=== PATIENT | female | born 1960 | race Caucasian/White ===

== ENCOUNTER 2019-03-09 11:28 | Inpatient (IN) | payer MEDICAID ==
[2019-03-09] VITALS (31 sets, daily range): BP systolic 64–152; BP diastolic 35–95
[~2019-03-09] VITALS: Ht 195.6 cm; Wt 84.4 kg
--- NOTE | 2019-03-09 11:28 | NUR ---
PT [facility]IRA FROM SNF FOR ALOC/BRADYCARDIC. PT CAME UNRESPONSIVE, PT TO BED 5, PT ON MONITOR, RT AND MD AT BEDSIDE.
--- NOTE | 2019-03-09 11:30 | NUR ---
7.5 ET TUBE PLACED BY MD 23 AT THE LIP, +BILATERAL BREATH SOUNDS, O2 SAT 100%, PT COLOR IS PINK, SKIN IS WARM AND DRY, STAT CXR ORDERED TO CONFIRM PLACEMENT
--- NOTE | 2019-03-09 11:49 | NUR ---
ICU 258
[2019-03-09] MEDS ORDERED: LORAZEPAM INJ 2 MG/ML VIAL ONE (11:51)
--- NOTE | 2019-03-09 11:51 | NUR ---
RT NOTE PT INTUBATED PER MD ORDER. 7.5 ETT 22 CM AT LIP. CUFF INFLATED. ETT SECURE. VENTILATOR SETTINGS FOLLOW AC 16 550 100% +5. ALARMS SET PER PROTOCOL AND AUDIBLE. VENT PLUGGED IN TO RED OUTLET. AMBU BAG AT BED SIDE. LARGE THICK HUBER SECRETIONS FOUND UPON TRACHEAL SUCTIONING. Addendum: 03/09/19 at 1153 by RANDAL COTTER RT Amended: Links added.
[2019-03-09] MEDS ORDERED: PROPOFOL 100 ML ONE (11:57)
[2019-03-09] MEDS ORDERED: PIPERACILLIN /TAZOBACTAM 3.375 G in IV D5W 50 ML IV ONE (12:00)
[2019-03-09] MEDS ORDERED: CALCIUM CHLORIDE 1,000 MG/10 ML DISP.SYRIN IV ONE (12:00)
[2019-03-09] MEDS ORDERED: IV NS 0.9% 1,000 ML BAG IV ONE (12:00)
[2019-03-09] MEDS ORDERED: LEVOFLOXACIN 750 MG /D5W 150ML 150 ML IV ONE (12:00)
[2019-03-09] MEDS ORDERED: DOPamine 400 MG in IV D5W 250 ML IV PRN ×4 (12:00)
[2019-03-09] MEDS ORDERED: ENOX40DI SQ (12:09)
[2019-03-09] MEDS ORDERED: ARGI1POW13 PO (12:09)
[2019-03-09] MEDS ORDERED: INSU100V27 SQ (12:09)
[2019-03-09] MEDS ORDERED: DRON2.5C PO (12:09)
[2019-03-09] MEDS ORDERED: MAGN400O6 PO (12:09)
[2019-03-09] MEDS ORDERED: ACET-868 PO (12:09)
[2019-03-09] MEDS ORDERED: LISI-607 PO (12:09)
[2019-03-09] MEDS ORDERED: ESOM40CA PO (12:09)
[2019-03-09] MEDS ORDERED: MULT-447 PO (12:09)
[2019-03-09] MEDS ORDERED: BISA10SU8 RC (12:09)
[2019-03-09] MEDS ORDERED: FOLI1TAB16 PO (12:09)
[2019-03-09] MEDS ORDERED: NA P133E RC (12:09)
[2019-03-09] MEDS ORDERED: HYDR-4384 PO (12:09)
[2019-03-09] MEDS ORDERED: ATOR40TA PO (12:09)
[2019-03-09] MEDS ORDERED: CARV3.12 PO (12:09)
[2019-03-09] MEDS ORDERED: ASPI-1169 PO (12:09)
--- NOTE | 2019-03-09 12:27 | NUR ---
EPIC PAGED ALIDA DNP
[2019-03-09] MEDS ORDERED: LORAZEPAM INJ 2 MG/ML VIAL IV ONE (12:30)
[2019-03-09] MEDS ORDERED: PROPOFOL 1,000 MG/100 ML BOTTLE IV ONE (12:30)
[2019-03-09 12:40] LABS: APPEARANCE,URINE TURBID (CLEAR); BILIRUBIN,URINE NEGATIVE (NEGATIVE); BLOOD, URINE 2+ Ery/uL (NEGATIVE); COLOR,URINE DARK YELLO (YELLOW); KETONES,URINE NEGATIVE (NEGATIVE); LEUKOCYTE ESTERASE ,URINE 3+ (NEGATIVE); NITRITE, URINE NEGATIVE (NEGATIVE); PH,URINE 8.5 (5.0-8.0); PROTEIN,URINE 2+ mg/dl (NEGATIVE); UGLUCOSE NEGATIVE (NEGATIVE); UROBILINOGEN,URINE 0.2 EU/dL (0.2)
[2019-03-09 12:43] LABS: CALCIUM, SERUM 7.8 mg/dL (8.5-10.1); CARBON DIOXIDE 25 mmol/L (21-32); CREATININE 0.8 mg/dL (0.6-1.3); GLUCOSE 143 mg/dL (74-106); POTASSIUM 3.1 mmol/L (3.5-5.1); UREA NITROGEN, BLOOD 15 mg/dL (7-18)
[2019-03-09 12:56] LABS: ALANINE AMINOTRANSFERASE 44 U/L (12-78); ALKALINE PHOSPHATASE 535 U/L (46-116); ASPARTATE AMINOTRANSFERASE 110 U/L (15-37); B-TYPE NATRIURETIC PEPTIDE 437 PG/ML (0-125); BILIRUBIN,DIRECT 0.2 mg/dL (0.0-0.2); BILIRUBIN,TOTAL 0.3 mg/dL (0.2-1.0); TOTAL PROTEIN, SERUM 4.4 g/dL (6.4-8.2)
[2019-03-09 12:58] LABS: SODIUM SERUM 167 mmol/L (136-145)
[2019-03-09 12:59] LABS: CHLORIDE 130 mmol/L (98-107)
[2019-03-09] MEDS ORDERED: NOREPINEPHRINE 8 MG in IV D5W 500 ML IV PRN (13:00)
[2019-03-09 13:04] LABS: ALBUMIN 0.7 g/dL (3.4-5.0); BASOPHILS % (AUTO) 0.2 % (0.0-2.0); HEMATOCRIT 24 % (33-45); LYMPHOCYTES # (AUTO) 3.2 /CMM (0.8-4.8); LYMPHOCYTES % (AUTO) 35.2 % (20.0-44.0); MEAN CORPUSCULAR HGB CONC 29 g/dl (31.0-36.0); MEAN CORPUSCULAR VOLUME 112 fL (82-100); MONOCYTES # (AUTO) 0.3 /CMM (0.1-1.30); MONOCYTES % (AUTO) 3.7 % (2.0-12.0); NEUTROPHILS # (AUTO) 5.5 /CMM (1.8-8.9); NEUTROPHILS % (AUTO) 60.9 % (43.0-81.0); PLATELET COUNT (AUTO) 157 /CMM (150-450); RED BLOOD CELL COUNT(AUTO) 2.17 MIL/uL (4.0-5.2); WHITE BLOOD COUNT (AUTO) 9.1 K/uL (4.3-11.0)
[2019-03-09 13:11] LABS: BACTERIA,URINE Many /HPF (None Seen); SQUAMOUS EPITHELIAL CELL,UR Few /HPF (None Seen); WBC,URINE 81-100 /HPF (0-3)
[2019-03-09 13:16] LABS: HEMOGLOBIN 6.9 g/dL (11.5-14.8)
[2019-03-09 13:49] LABS: BAND % (MANUAL) 9 % (0.0-5.0); LYMPHOCYTES % (MANUAL) 30 % (16-48); MONOCYTES % (MANUAL) 5 % (0-11.0); NEUTROPHILS % (MANUAL) 56 (42-76)
--- NOTE | 2019-03-09 13:57 | NUR ---
PT WAS TRANSPORTED TO ICU VIA ACLS PROTOCOL
--- NOTE | 2019-03-09 13:59 | NUR ---
ART EDUCATOR NOTE RCVD PT LETHARGIC, INTUBATED 7.03/07 AT LIP, AFIB ON MONITOR, CYR TO GRAVITY WITH CLOUDY, YELLOW URINE. RIGHT SUBCLAVIAN LINE IN PLACE, PT ON DOPAMINE AND LEVOPHED DRIPS. RESTRAINTS STARTED IN ER AND IN PLACE ON TRANSPORT. REPORT GIVEN AT BEDSIDE BY HOWARD BROWNING. NO ADMISSION ORDERS. CHELSY, PSYCHOLOGICAL TESTS SALES AGENT INFORMED THAT PT WAS TRANSPORTED BY ER TO ICU WITHOUT ANY ADMISSION ORDERS AND WITHOUT GIVEN PRIOR REPORT.
[2019-03-09] MEDS ORDERED: IV D5/0.45 NACL 1,000 ML IV PRN (15:06)
[2019-03-09 15:16] LABS: ABG BASE EXCESS -1.4 mmol/L; ABG PCO2 32.9 mmHg (35.0-45.0); ABG PH 7.448 (7.350-7.450); ABG PO2 531.5 mmHg (75.0-100.0); AaDO2 148.6 mmHg; COHb 0.7 % (0.5-1.5); MetHb 0.5 % (0.0-1.5); O2Hb 97.8 % (94.0-97.0); PEEP,BG 5 cm H2O; SITE, ABG Right Brachial; VT, ABG 550 mL
--- NOTE | 2019-03-09 15:24 | NUR ---
VENT CHANGES BELOW PER DR. WARREN: VT 500ML FO2 40% Addendum: 03/09/19 at 1525 by SONNY BRADLEY RT Amended: Links added.
[2019-03-09] MEDS ORDERED: PROPOFOL 10MG/ML 50ML 50 ML IV PRN (15:30)
[2019-03-09] MEDS ORDERED: ONDANSETRON HCL/PF 4 MG/2 ML VIAL IVP PRN (15:30)
[2019-03-09] MEDS ORDERED: DEXTROSE 50%-WATER 50 ML DISP.SYRIN IV PRN (15:30)
[2019-03-09] MEDS ORDERED: ACETAMINOPHEN 650 MG/SUPP.RECT RC PRN (15:30)
[2019-03-09] MEDS ORDERED: ALBUMIN 5% 12.5 GM in PREMIX 1 EA IV ONE (16:00)
[2019-03-09] MEDS ORDERED: FEE PK DOSING 1 MIN EA MC ONE (16:20)
[2019-03-09] MEDS ORDERED: PHENYLEPHRINE 80 MG in IV D5W 250 ML IV PRN (16:30)
[2019-03-09 16:33] LABS: MAGNESIUM 1.9 mg/dL (1.8-2.4); PHOSPHORUS 4.8 mg/dL (2.5-4.9)
[2019-03-09] MEDS: NOREPINEPHRINE 16 MG in IV D5W 500 ML IV PRN (16:34)
[2019-03-09] MEDS: IV NS 0.9% 1,000 ML IV PRN (16:48)
[2019-03-09] MEDS: POTASSIUM CL. PREMIX PERIPHER. 50 ML IV SCH ×5 (16:50→23:44)
--- NOTE | 2019-03-09 16:56 | NUR ---
INCOME TAX MANAGER NOTE PT'S CARE ENDORSED TO HOWARD CHRISTIANSON FOR CONTINUITY OF CARE. BILATERAL PEDAL PULSES NOT PRESENT ON ASSESSMENT WITH DOPPLER, KELVIN IRWIN NP AWARE, WEAK POSTERIOR TIBIALIS PULSES PRESENT, PT'S DAUGHTER AT BEDSIDE UPDATED ON PT'S CONDITION BY DR. ALEX. CONSENT FOR BLOOD PRODUCTS SIGNED AND PLACED IN CHART. PT'S VITAL SIGNS ARE MORE STABLE, A -LINE PLACEMENT DONE FOR ACCURATE BLOOD PRESSURE MANAGEMENT.
[2019-03-09 17:17] LABS: CALCIUM, SERUM 7.5 mg/dL (8.5-10.1); CREATININE 0.8 mg/dL (0.6-1.3); POTASSIUM 2.9 mmol/L (3.5-5.1)
[2019-03-09 17:29] LABS: BASOPHILS % (AUTO) 0.2 % (0.0-2.0); EOSINOPHILS % (AUTO) 0.1 % (0.0-6.0); HEMATOCRIT 30 % (33-45); HEMOGLOBIN 8.3 g/dL (11.5-14.8); LYMPHOCYTES # (AUTO) 1.6 /CMM (0.8-4.8); LYMPHOCYTES % (AUTO) 13.2 % (20.0-44.0); MEAN CORPUSCULAR HGB CONC 28 g/dl (31.0-36.0); MEAN CORPUSCULAR VOLUME 110 fL (82-100); MONOCYTES # (AUTO) 0.6 /CMM (0.1-1.30); MONOCYTES % (AUTO) 5.3 % (2.0-12.0); NEUTROPHILS % (AUTO) 81.2 % (43.0-81.0); PLATELET COUNT (AUTO) 177 /CMM (150-450); RED BLOOD CELL COUNT(AUTO) 2.71 MIL/uL (4.0-5.2); WHITE BLOOD COUNT (AUTO) 12.3 K/uL (4.3-11.0)
[2019-03-09] MEDS: HYDROCORTISONE SOD SUCCINATE 100 MG/2 ML VIAL IV SCH (17:44)
[2019-03-09] MEDS: FLUDROCORTISONE 0.1 MG TABLET NG SCH (17:45)
[2019-03-09] MEDS: VANCOMYCIN 1.25 GM in IV D5W 500 ML IV SCH (17:45)
[2019-03-09 17:51] LABS: THYROID STIMULATING HORMONE 3.932 uIU/mL (0.358-3.74)
[2019-03-09 18:07] LABS: BAND % (MANUAL) 5 % (0.0-5.0); LYMPHOCYTES % (MANUAL) 13 % (16-48); MONOCYTES % (MANUAL) 5 % (0-11.0); NEUTROPHILS % (MANUAL) 77 (42-76)
[2019-03-09] MEDS: BLOOD SUGAR DIAGNOSTIC 1 EACH STRIP IN SCH (18:29)
--- NOTE | 2019-03-09 19:26 | NUR ---
LOAN DOCUMENTATION SPECIALIST CLOSING NOTE PATIENT SEDATED ,TOLERATING VENT SETTINGS WELL.ON LEVO 14MCG/MIN.AND PROPOFOL 10MCG/KG/MIN.BP STABLE.ON GOING IVF AND ATB.OG TUBE INSERTED PER ORDER.NO BLEEDING NOTED.SAFETY AND ASPIRATION PRECAUTIONS IN PLACE.ENDORSED TO PM NURSE FOR YOSSI.
--- NOTE | 2019-03-09 20:05 | NUR ---
QUALITY MEASUREMENT SPECIALIST. INITIAL ASSESSMENT. RECEIVED THE PT REST ON THE BED, ORALLY INTUBATED, SEDATED WITH DIPRIVAN. ETT 7.5CM,AC 16,LIP 23,TV 550, PEEP 5, SAT 98%. NO ACUTE DISTRESS NOTED. SENIOR RADIATION THERAPIST SHOWING AFIB. OGT CLAMPED. FC PATENT. JOSE LUIS SOFT WRIST RESTRAINT RESTRAINT CHECKED AND RELEASED. NO INJURY OR REDNESS NOTED, A LINE INTACT. JOSE LUIS SOFT WRIST RESTRAINT CHECKED AND RELEASED. NO INJURY OR REDNESS NOTED. HOB ELEAVTED. LEILA HUGGER ON. IV RT SUCLAVIAN INTACT, LT WRIST 22G, DIPRIVAN 10MCG/KG/MIN,LEVOPHED 14MCG/K MIN. NS 200ML/H, POTASSIUM RUNNING. WILL CONTINUE TO MONITOR VITALS.
[2019-03-09] MEDS: ZOSYN IVPB 3.375 G in IV D5W 50ml IV SCH (20:34)
[2019-03-09] MEDS ORDERED: POTASSIUM CL. PREMIX PERIPHER. 100 ML ONE (23:44)
[2019-03-10] VITALS (79 sets, daily range): BP systolic 10–137; BP diastolic 36–83
[2019-03-10] MEDS: FLUDROCORTISONE 0.1 MG TABLET NG SCH ×5 (00:31→23:21)
[2019-03-10] MEDS: BLOOD SUGAR DIAGNOSTIC 1 EACH STRIP IN SCH ×5 (00:32→23:28)
[2019-03-10] MEDS: INSULIN REGULAR, HUMAN 100 UNIT/ML 3 ML VIAL SQ PRN ×5 (00:34→23:30)
[2019-03-10] MEDS: IV NS 0.9% 1,000 ML IV PRN (00:37)
[2019-03-10] MEDS: POTASSIUM CL. PREMIX PERIPHER. 50 ML IV SCH (00:37)
[2019-03-10] MEDS ORDERED: NOREPINEPHRINE 4 MG/4 ML AMPUL IV ONE (00:46)
[2019-03-10] MEDS: NOREPINEPHRINE 16 MG in IV D5W 500 ML IV PRN ×2 (01:32→11:41)
[2019-03-10] MEDS: ZOSYN IVPB 3.375 G in IV D5W 50ml IV SCH ×4 (02:52→20:31)
--- NOTE | 2019-03-10 03:05 | NUR ---
ASSESSMENT ANALYST. PT CONVERTED TO SINUS RHYTHM AT 0100
[2019-03-10 04:36] LABS: BASOPHILS # (AUTO) 0.1 /CMM (0.0-0.2); BASOPHILS % (AUTO) 0.5 % (0.0-2.0); EOSINOPHILS % (AUTO) 0.5 % (0.0-6.0); HEMATOCRIT 26 % (33-45); HEMOGLOBIN 7.2 g/dL (11.5-14.8); LYMPHOCYTES # (AUTO) 2.3 /CMM (0.8-4.8); LYMPHOCYTES % (AUTO) 14.6 % (20.0-44.0); MEAN CORPUSCULAR HGB CONC 28 g/dl (31.0-36.0); MEAN CORPUSCULAR VOLUME 108 fL (82-100); MONOCYTES # (AUTO) 0.5 /CMM (0.1-1.30); MONOCYTES % (AUTO) 3.1 % (2.0-12.0); NEUTROPHILS % (AUTO) 81.3 % (43.0-81.0); PLATELET COUNT (AUTO) 170 /CMM (150-450); RED BLOOD CELL COUNT(AUTO) 2.39 MIL/uL (4.0-5.2)
[2019-03-10 04:51] LABS: CREATININE 0.9 mg/dL (0.6-1.3); MAGNESIUM 1.6 mg/dL (1.8-2.4); PHOSPHORUS 3.7 mg/dL (2.5-4.9); POTASSIUM 3.1 mmol/L (3.5-5.1)
[2019-03-10 04:55] LABS: THYROID STIMULATING HORMONE 1.153 uIU/mL (0.358-3.74)
[2019-03-10] MEDS ORDERED: ALBUMIN 25% 12.5 GM in PREMIX 1 EA IV ONE (05:00)
[2019-03-10] MEDS ORDERED: ALBUMIN 25% 12.5 GM/50 ML BOTTLE IV ONE (05:00)
[2019-03-10] MEDS: VANCOMYCIN 1.25 GM in IV D5W 500 ML IV SCH (05:26)
--- NOTE | 2019-03-10 05:51 | NUR ---
INSURANCE CUSTOMER SERVICE SPECIALIST. CRITICAL LAB CALLED FOR SODIUM 163, CL 129. MD SYED MADE AWARE, CHANGE NS TO D5W @75ML/H
[2019-03-10] MEDS ORDERED: IV D5W 1,000 ML IV SCH (06:00)
--- NOTE | 2019-03-10 07:35 | NUR ---
RT PATIENT REC'D ORALLY INTUBATED ON MECH VENT WITH ORDERED SETTINGS ELIZABETH. VENTS ALARMS CHECKED ELIZABETH WELL. PATIENT NON RESPONSIVE, NO DISTRESS ON MECH VENT. SUCTIONED WITH SMALL AMT OF HUBER SEMITHICK SECRETIONS. AMBU BAG AT [facility]. Addendum: 03/10/19 at 1830 by ASHELY ZARAGOZA RT Amended: Links added.
[2019-03-10 08:07] LABS: BAND % (MANUAL) 24 % (0.0-5.0); LYMPHOCYTES % (MANUAL) 14 % (16-48); MONOCYTES % (MANUAL) 1 % (0-11.0); NEUTROPHILS % (MANUAL) 61 (42-76)
--- NOTE | 2019-03-10 08:50 | NUR ---
PER DR PAN PLEASE GIVE PATIENT 200ML FREE WATER FLUSHES EVERY 6 HOURS
[2019-03-10] MEDS: Magnesium 1GM/D5W 100ML PREMIX 100 ML IV SCH ×2 (09:10→10:12)
[2019-03-10] MEDS: HYDROCORTISONE SOD SUCCINATE 100 MG/2 ML VIAL IV SCH ×3 (09:10→17:07)
[2019-03-10] MEDS: Z GUARD REMEDY 2 OZ OINT TP PRN (09:11)
[2019-03-10] MEDS: Potassium Chloride 40 MEQ in IV D5W 1,000 ML IV PRN ×2 (09:49→23:22)
[2019-03-10 10:02] LABS: ABG BASE EXCESS -1.1 mmol/L; ABG OXYGEN SATURATION 97.9 % (92.0-98.5); ABG PCO2 35.8 mmHg (35.0-45.0); ABG PH 7.428 (7.350-7.450); COHb 1.2 % (0.5-1.5); MetHb 0.6 % (0.0-1.5); O2Hb 96.1 % (94.0-97.0); SITE, ABG A-Line
--- NOTE | 2019-03-10 11:14 | NUR ---
Positive DVT on L Popliteal - Called Dr. Vu w/ orders to start Lovenox (pharmacy to dose) & check H/H tonight at 8pm.
[2019-03-10] MEDS: PROPOFOL 100 ML IV PRN (11:41)
[2019-03-10] MEDS: ENOXAPARIN SODIUM 80 MG/0.8 ML DISP.SYRIN SQ SCH ×2 (11:42→20:32)
--- NOTE | 2019-03-10 12:00 | NUR ---
Pt seen & examined by Dr. Alonzo, updated about pt condition w/ NNO.
[2019-03-10] MEDS: LEVOFLOXACIN 750 MG /D5W 150ML 750 MG in PREMIX 1 EA IV SCH (13:02)
--- NOTE | 2019-03-10 13:25 | NUR ---
Pt seen & examined by Dr. Wynn w/ orders to do ABG & CXR zechariah CHO
[2019-03-10 15:27] LABS: OCCULT BLOOD STOOL NEGATIVE (NEGATIVE)
[2019-03-10] MEDS: VANCOMYCIN 1 GM in IV D5W 250 ML IV SCH (17:33)
--- NOTE | 2019-03-10 18:22 | NUR ---
TIN FLIPPER CLOSING NOTES: Pt not in any distress. On MV via ETT, sating at 100%. SR/SB on telemonitor. IV line access kept patent & intact w/ D5W+40meqsKCL x 120 cc/hr, Diprivan Drip x 10 mcg, & Levophed Drip x 10 mcg infusing well at R Subclavian TLC. Has R wrist A-line in place, no bleeding. Has L wrist SL, C/D/I. Has OGT clamped at this time (per DR. Vu will reassess zechariah re: starting TF). B soft wrist restraints kept on for pt's safety. Has FC draining to BSB, yellowish UOP. Safety measures observed at all times w/ bed in lowest & locked pos. Call light placed w/in reach. Will endorse to PM RN for YOSSI.
--- NOTE | 2019-03-10 19:11 | NUR ---
PT RCVD ORALLY INTUBATED WITH 7.5 ETT SECURED @ 22 CM [facility] WITH NOTED SETTINGS. PT IS NON RESPONSIVE . RADIOLOGIC TECHNICIAN CUFF PRESSURE NOTED. NO RESP DISTRESS OR SOB NOTED AT THIS TIME . SX'D MODERATE AMOUNT OF HUBER THICK SECRETIONS. ALARMS ARE SET AND AUDIBLE. VENT PLUGGED INTO RED OUTLET. AMBU BAG AT BEDSIDE. WILL CONTINUE TO MONITOR.
[2019-03-10] MEDS: IV NS 0.9% 250 ML IV PRN (20:51)
[2019-03-10 21:19] LABS: HEMOGLOBIN 6.4 g/dL (11.5-14.8)
--- NOTE | 2019-03-10 22:45 | NUR ---
RANGER AIDE NOTES LATEST H/H = 6.02/04. RESULT RELAYED TO DR SYED. NEW ORDER: TRANSFUSE 1 UNIT OF [facility]
[2019-03-11] VITALS (95 sets, daily range): BP systolic 82–152; BP diastolic 34–99
[2019-03-11] MEDS: ZOSYN IVPB 3.375 G in IV D5W 50ml IV SCH ×4 (01:10→20:20)
[2019-03-11] MEDS: PROPOFOL 100 ML IV PRN (01:15)
--- NOTE | 2019-03-11 02:00 | NUR ---
STAFF GENETIC COUNSELOR NOTES CALLED BLOOD BANK, SPOKE TO MARILYN. PER MARILYN, [facility] X1 UNIT IS NOW READY.
--- NOTE | 2019-03-11 02:47 | NUR ---
CRAB MEAT PROCESSOR NOTES BLOOD TRANSFUSION STARTED. WILL MONITOR CLOSELY
[2019-03-11] MEDS: BLOOD SUGAR DIAGNOSTIC 1 EACH STRIP IN SCH ×3 (06:06→17:29)
[2019-03-11] MEDS: INSULIN REGULAR, HUMAN 100 UNIT/ML 3 ML VIAL SQ PRN ×3 (06:07→17:40)
[2019-03-11] MEDS: VANCOMYCIN 1 GM in IV D5W 250 ML IV SCH (06:09)
[2019-03-11] MEDS: FLUDROCORTISONE 0.1 MG TABLET NG SCH ×3 (06:09→17:14)
[2019-03-11 07:17] LABS: BASOPHILS % (AUTO) 0.2 % (0.0-2.0); HEMATOCRIT 25 % (33-45); HEMOGLOBIN 7.4 g/dL (11.5-14.8); LYMPHOCYTES # (AUTO) 1.8 /CMM (0.8-4.8); LYMPHOCYTES % (AUTO) 21.2 % (20.0-44.0); MEAN CORPUSCULAR HGB CONC 30 g/dl (31.0-36.0); MEAN CORPUSCULAR VOLUME 104 fL (82-100); MONOCYTES # (AUTO) 0.3 /CMM (0.1-1.30); MONOCYTES % (AUTO) 3.4 % (2.0-12.0); NEUTROPHILS # (AUTO) 6.3 /CMM (1.8-8.9); NEUTROPHILS % (AUTO) 75.2 % (43.0-81.0); PLATELET COUNT (AUTO) 105 /CMM (150-450); RED BLOOD CELL COUNT(AUTO) 2.35 MIL/uL (4.0-5.2); WHITE BLOOD COUNT (AUTO) 8.4 K/uL (4.3-11.0)
[2019-03-11 07:46] LABS: CALCIUM, SERUM 6.6 mg/dL (8.5-10.1); CREATININE 0.8 mg/dL (0.6-1.3); POTASSIUM 3.6 mmol/L (3.5-5.1)
[2019-03-11] MEDS: Z GUARD REMEDY 2 OZ OINT TP PRN ×2 (08:03→12:18)
[2019-03-11] MEDS: Potassium Chloride 40 MEQ in IV D5W 1,000 ML IV PRN ×2 (08:03→17:14)
[2019-03-11] MEDS: HYDROCORTISONE SOD SUCCINATE 100 MG/2 ML VIAL IV SCH ×3 (08:03→16:44)
[2019-03-11 09:12] LABS: BAND % (MANUAL) 15 % (0.0-5.0); LYMPHOCYTES % (MANUAL) 21 % (16-48); MONOCYTES % (MANUAL) 4 % (0-11.0); MYELOCYTES % 4 % (0-0); NEUTROPHILS % (MANUAL) 56 (42-76)
--- NOTE | 2019-03-11 09:30 | NUR ---
DR DOBBS AT BEDSIDE. PATIENT OFF SEDATION AT THIS TIME ALERT AND AWAKE. NOT FOLLOWING COMMANDS. AWARE PATIENT CONTINUES TO BE BRADYCARDIC 39 UNSUSTAINED HOWEVER CONTINUES IN THE 40'S PRIMARILY. NO NEW ORDERS AT THIS TIME MESSAGE LEFT FOR RETORT SETTER STOCK MOVER TO NOTIFY. OTHERWISE BP STABLE. RR STABLE. WILL MONITOR Addendum: 03/11/19 at 1047 by JAMIN PEREZ RN PER MD PIZARRO TO CONTINUE WITH LOVENOX.
--- NOTE | 2019-03-11 09:54 | NUR ---
DR BROOKS CERTIFIED ADDICTION COUNSELOR LABOR OPERATOR AWARE OF PATIENT HR IN THE 40'S AND AT TIMES HIGH 30'S. NO NEW ORDERS.
[2019-03-11] MEDS: ENOXAPARIN SODIUM 80 MG/0.8 ML DISP.SYRIN SQ SCH ×2 (09:59→21:38)
--- NOTE | 2019-03-11 10:02 | NUR ---
DR BROOKS AT BEDSIDE. PER MD ORDER EKG.
--- NOTE | 2019-03-11 10:30 | NUR ---
PATIENT MORE ALERT AND AWAKE. STARTING TO FOLLOW COMMANDS. MOVING ALL EXTREMITIES. DENIES PAIN. CALM AND COOPERATIVE.
--- NOTE | 2019-03-11 11:30 | NUR ---
DR DUMONT AT BEDSIDE. PER MD PATIENT STABLE FOR CT TESTS. AND AFTER CT TESTING OK TO TRY C PAP TRIAL ON PATIENT.
[2019-03-11] MEDS: NOREPINEPHRINE 16 MG in IV D5W 500 ML IV PRN (12:42)
[2019-03-11] MEDS ORDERED: CT SWABBABLE VALVE TRANS SET 1 EA INFUS.SET MC ONE (12:56)
[2019-03-11] MEDS ORDERED: IV NS 0.9% 250 ML IV ONE (12:56)
[2019-03-11] MEDS ORDERED: IOHEXOL-300 100 ML VIAL IV ONE (12:56)
--- NOTE | 2019-03-11 15:00 | NUR ---
NOTIFIED DR DUMONT PATIENT AWAKE AND ALERT. PER MD PLEASE INITIATE CPAP TRIAL WITH PRESSURE SUPPORT OF 10.
[2019-03-11] MEDS: LEVOFLOXACIN 750 MG /D5W 150ML 750 MG in PREMIX 1 EA IV SCH (15:14)
--- NOTE | 2019-03-11 15:57 | NUR ---
NOTIFIED DR DUMONT PATIENT STABLE ON CPAP. OK FOR ABG PER . SUZIE HERMOSILLO NOTIFIED
[2019-03-11 16:25] LABS: ABG BASE EXCESS -4.1 mmol/L; ABG OXYGEN SATURATION 97.6 % (92.0-98.5); ABG PCO2 41.8 mmHg (35.0-45.0); ABG PO2 137.3 mmHg (75.0-100.0); AaDO2 99.8 mmHg; MetHb 0.3 % (0.0-1.5); O2Hb 96.3 % (94.0-97.0); PEEP,BG 5 cm H2O; SITE, ABG A-Line
--- NOTE | 2019-03-11 16:40 | NUR ---
NOTIFIED DR DUMONT OF PATIENT ABG. PER MD CONTINUE WITH EXTUBATION. RT SUZIE AT BEDSIDE.
--- NOTE | 2019-03-11 16:45 | NUR ---
PATIENT SUCCESSFULLY EXTUBATED. TOLERATING NASAL CANNULA 4L. COUGH AND GAG REFLEXES PRESENT. AWAKE AND ALERT NODDING YES AND NO TO QUESTIONS ASKED OF HER. FOLLOWING COMMANDS
--- NOTE | 2019-03-11 18:52 | NUR ---
ALL DUE MEDS GIVEN AND ALL NEEDS MET. PATIENT AWAKE AND ALERT. FOLLOWING COMMANDS. SPEAKING. IV SITES C/D/I/P. BREATHING UNLABORED, NO SOB, AND TOLERATING LOW FLOW 02. PATIENT NSR. BP STABLE OFF LEVO. CYR 900ML OUTPUT. NO S/S BLEEDING. SKIN, SAFETY, ASPIRATION PRECAUTIONS IN PLACE AND MONITORED THROUGHOUT DAY.
--- NOTE | 2019-03-11 18:52 | NUR ---
ID ASSISTANT BRANCH MANAGER AWARE PATIENT LOOSE STOOL. OK FOR C DIFF SAMPLE.
--- NOTE | 2019-03-11 19:00 | NUR ---
STILL OPERATOR GIN NOTES RECEIVED PATIENT (EXTUBATED TODAY),AWAKE,ALERT,NOT IN ANY DISTRESS WITH O2 VIA NASAL CANNULA 3L/MIN.FOLLOWS COMMANDS,SEEMS TO UNDERSTAND ,TRIES TO TALK BUT UNABLE TO MAKE SOME WORDS/MUMBLES WITH SOFT LOW VOICE. NOTED BOTH ARMS + EDEMA L> R HARDLY ABLE TO LIFT AND HAVE A GOOD RETAIL MERCHANDISER ON LEFT HAND,RIGHT ARMS A LITTLE STRONGER AND ABLE TO LIFT BETTER. BOTH LOWER EXTREMITIES WEAK, ABLE TO SLIGHTLY MOVE AND LIFT BUT NOT OFF GRAVITY. TRIPLE LUMEN CATHETER NOTE ON LEFT SUBCLAVIAN AREA, DISTAL PORT TO CVP MONITOR,WITH GOOD WAVEFORM AND GOOD BLOOD RETURN. ARTERIAL LINE VIA LEFT RADIAL ARTERY GOOD WAVEFORM,GOOD BLOOD RETURN.COMFORT CARE DONE,NEEDS ATTENDED.PATIENT HYPOTHERMIC TEMP=94 F, WARMER TURNED ON TO MEDIUM TEMP.( LEILA WEINSTEIN).
[2019-03-12] VITALS (76 sets, daily range): BP systolic 81–140; BP diastolic 40–79
--- NOTE | 2019-03-12 | NUR ---
CELL LEAD NOTES STATUS UNCHANGED,REMAINS AWAKE,ALERT,NOT IN NAY DISTRESS ,TOLERATING NASAL CANNULA 02, SATURATING 99-100%. DENIES ANY PAIN.
[2019-03-12] MEDS: INSULIN REGULAR, HUMAN 100 UNIT/ML 3 ML VIAL SQ PRN ×5 (00:10→22:17)
[2019-03-12] MEDS: BLOOD SUGAR DIAGNOSTIC 1 EACH STRIP IN SCH ×5 (00:14→22:13)
[2019-03-12] MEDS: ZOSYN IVPB 3.375 G in IV D5W 50ml IV SCH ×2 (02:00→08:02)
[2019-03-12] MEDS: Potassium Chloride 40 MEQ in IV D5W 1,000 ML IV PRN ×2 (02:32→12:20)
[2019-03-12 04:31] LABS: BASOPHILS % (AUTO) 0.2 % (0.0-2.0); EOSINOPHILS % (AUTO) 0.1 % (0.0-6.0); HEMATOCRIT 25 % (33-45); HEMOGLOBIN 7.4 g/dL (11.5-14.8); LYMPHOCYTES # (AUTO) 1.6 /CMM (0.8-4.8); LYMPHOCYTES % (AUTO) 12.5 % (20.0-44.0); MEAN CORPUSCULAR HGB CONC 30 g/dl (31.0-36.0); MEAN CORPUSCULAR VOLUME 103 fL (82-100); MONOCYTES # (AUTO) 0.3 /CMM (0.1-1.30); MONOCYTES % (AUTO) 2.6 % (2.0-12.0); NEUTROPHILS % (AUTO) 84.6 % (43.0-81.0); PLATELET COUNT (AUTO) 90 /CMM (150-450); RED BLOOD CELL COUNT(AUTO) 2.38 MIL/uL (4.0-5.2)
[2019-03-12 04:37] LABS: CALCIUM, SERUM 6.7 mg/dL (8.5-10.1); CREATININE 0.7 mg/dL (0.6-1.3); POTASSIUM 4.4 mmol/L (3.5-5.1)
[2019-03-12 05:00] LABS: BAND % (MANUAL) 9 % (0.0-5.0); LYMPHOCYTES % (MANUAL) 13 % (16-48); MONOCYTES % (MANUAL) 4 % (0-11.0); NEUTROPHILS % (MANUAL) 74 (42-76)
[2019-03-12] MEDS: FLUDROCORTISONE 0.1 MG TABLET NG SCH ×4 (06:00→17:15)
[2019-03-12] MEDS: IV NS 0.9% 250 ML IV PRN (06:40)
--- NOTE | 2019-03-12 07:00 | NUR ---
REMAINS STABLE, WITH O2 VIA NASAL CANNULA 3L/MIN. NOT IN ANY DISTRESS, BP STABLE, STILL OF PRESSORS. REPORT GIVEN TO AVLARO LAWRENCE.
--- NOTE | 2019-03-12 07:30 | NUR ---
RN NOTE: RECEIVED PATIENT IN BED, AWAKE, ALERT AND NONVERBAL. ON O2 3L/MIN VIA NC SATURATING 100%. DENIED ANY PAIN. ON SHUTDOWN COORDINATOR SR HR= 83. HOB ELEVATED. ON CONTACT ISOLATION FOR POSSIBLE C. DIFF. C. DIFF TOXIN TEST STILL PENDING AT THIS TIME. (R) RADIAL ARTERY A-LINE NOTED INTACT. (R) SUBCLAVIAN TRIPLE LUMEN IN PLACED WITH BIOPATCH NOTED INTACT AND CLEAN. BED ALARMED AND LOCKED AT ALL TIMES. CALL LIGHT WITHIN REACH. LEILA HUGGER STILL IN PLACED WITH THE PATIENT. NEEDS ANTICIPATED. PENDING SWALLOW EVALUATION.
--- NOTE | 2019-03-12 08:33 | NUR ---
RN NOTE: CALLED AND SPOKE WITH LOURDES FROM THE REHAB DEPARTMENT AND HE WAS INFORMED OF THE PENDING SWALLOW EVALUATION FOR THE PATIENT. PER LOURDES, PATIENT WAS ON THE SCHEDULE FOR SWALLOW EVAL TODAY. AWAITING FOR THE SPEECH THERAPIST.
--- NOTE | 2019-03-12 09:15 | NUR ---
RN NOTE: INFORMED DR. FUNG REGARDING THE PATIENT'S ORDER FOR LOVENOX 80 MG SQ AND THE CURRENT HGB 7.4/HCT 25 AND PLATELET 90. MD WAS INFORMED THAT THERE IS NO S/S OF ACTIVE BLEEDING NOTED. AWAITING FOR MD'S RESPONSE.
[2019-03-12] MEDS: HYDROCORTISONE SOD SUCCINATE 100 MG/2 ML VIAL IV SCH ×3 (09:17→17:15)
[2019-03-12] MEDS: NOREPINEPHRINE 16 MG in IV D5W 500 ML IV PRN ×2 (09:50→13:20)
--- NOTE | 2019-03-12 09:50 | NUR ---
RN NOTE: PATIENT WAS STARTED ON LEVOPHED 2MCG DUE TO SBP SUSTAINING AT 80'S. WILL CLOSELY MONITOR THE PATIENT'S BP Q15 MIN.
--- NOTE | 2019-03-12 10:00 | NUR ---
RN NOTE: RECEIVED A RESPONSE FROM DR. FUNG AND PER MD, HE WILL CHECK THE ORDER FOR LOVENOX AND WILL GIVE IT ONCE MD GAVE AN OK FOR THE LOVENOX TO BE ADMINISTER.
--- NOTE | 2019-03-12 10:18 | NUR ---
RN NOTE: BEDSIDE SWALLOW EVALUATION WAS DONE BY THE SPEECH THERAPIST AND PATIENT TOLERATED THE APPLE SAUCE AND VANILLA PUDDING. PATIENT WAS INITIALLY GIVEN THIN LIQUID, BUT WAS NOTED WITH SLIGHT COUGHING. SPEECH THERAPIST GAVE A THICKENED LIQUID AND NO COUGHING WAS NOTED. PER SPEECH THERAPIST, OK TO START WITH PUREED DIET WITH NECTAR THICKENED LIQUID FOR LUNCH. DR. FUNG WILL BE INFORMED ABOUT THE SWALLOW EVALUATION.
--- NOTE | 2019-03-12 11:30 | NUR ---
RN NOTE: DR. FUNG PRESENT IN THE ROOM AND WAS GIVEN AN UPDATE THAT THE PATIENT PASSED HER SWALLOW EVALUATION AND WAS CLEARED TO START EATING FOR LUNCH TODAY. PER DR. FUNG, HE WILL DC LOVENOX AND START THE PATIENT WITH XARELTO. WAS ALSO INFORMED THAT PATIENT WAS RESTARTED WITH LEVOPHED 2MCG @0950.
[2019-03-12] MEDS ORDERED: DEXTROSE 50%-WATER 50 ML DISP.SYRIN IV PRN (12:00)
[2019-03-12] MEDS ORDERED: RIVAROXABAN 15 MG TABLET PO SCH (12:00)
[2019-03-12] MEDS ORDERED: MEROPENEM 1 G in IV NS 0.9% 100 ML IV ONE (13:00)
--- NOTE | 2019-03-12 13:10 | NUR ---
RN NOTE: CALLED AND SPOKE WITH ALEX FROM THE MICROBIOLOGY DEPARTMENT AT [facility] AND MADE THEM AWARE OF THE REQUEST OF DR. SEGURA FOR THE SENSITIVITY REPORT FOR THE URINE CULTURE ON 03/09/19. PER ALEX, THEY ARE WORKING ON IT AND POSSIBLY TODAY UNTIL TOMORROW THE FINAL RESULTS WILL BE POSTED TO EMR. DR. SEGURA WILL BE INFORM ABOUT IT.
--- NOTE | 2019-03-12 13:15 | NUR ---
RN NOTE: CALLED PHARMACY REGARDING THE DOSE OF MERREM SCHEDULED AT 1300. PER RICKY, PHARMACIST THEY ARE WORKING ON IT AND WILL DELIVER TO THE UNIT ONCE AVAILABLE.
--- NOTE | 2019-03-12 14:50 | NUR ---
RN NOTE: SPOKE WITH KANDIS, PHARMACIST AND FOLLOWED-UP ABOUT THE PATIENT'S LEVAQUIN IV DOSE FOR 1400. PER KANDIS, THE IV BAG IS STILL IN THE PHARMACY AND THE POST ANESTHESIA ROOM NURSE WILL SEND THE MEDICATION.
[2019-03-12] MEDS: LEVOFLOXACIN 750 MG /D5W 150ML 750 MG in PREMIX 1 EA IV SCH (15:13)
--- NOTE | 2019-03-12 15:21 | NUR ---
RN NOTE: CALLED AND SPOKE WITH DANNI FROM THE OFFICE OF DR. Niki BRADSHAW AND SENT A MESSAGE REGARDING THE ARTERIAL DOPPLER OF THE (L) UPPER ARM. AWAITING FOR MD'S CALL BACK.
--- NOTE | 2019-03-12 15:50 | NUR ---
RN NOTE: CALLED AND SPOKE WITH LUKAS MCDOWELL AND VERIFIED WITH HER IF SHE WAS OK WITH THE ULTRASOUND GUIDED THORACENTESIS OF THE (L) LUNG BY TOMORROW. VERBAL CONSENT WAS GIVEN BY DAUGHTER AND CONSENT WAS VERIFIED WITH ANOTHER NURSE HOWARD POOZ. CONSENT WAS FILED TO THE PATIENT'S CHART. LUKAS LOREDO HAS NO QUESTION REGARDING THE PROCEDURE BY TOMORROW.
--- NOTE | 2019-03-12 17:00 | NUR ---
RN NOTE: PATIENT WAS GIVEN A BED BATH AND PATIENT WAS ABLE TO TOLERATE IT. WOUND TREATMENT WAS DONE.
--- NOTE | 2019-03-12 19:32 | NUR ---
RN NOTE: BEDSIDE REPORT GIVEN TO PM SHIFT NURSE FOR CONTINUITY OF CARE. PATIENT REMAINED ON LEVOPHED 3MCG AND SBP WAS ON THE 100'S. PATIENT DENIED ANY PAIN WITHIN THE SHIFT. C. DIFF STOOL TEST REMAINED PENDING.
--- NOTE | 2019-03-12 20:35 | NUR ---
RN NOTES RECEIVED PT AWAKE AOX1-2. RESPONSIVE TO TACTILE AND VERBAL STIMULI . WITH O2 2LPM VIA NC. SATURATION 100%. NO ACUTE RESPIRATORY DISTRESS. AFEBRILE. TEMP 98.1 NSR ON TELE MONITOR. IV SITE ON LEFT WRIST G 22 AND RW G 20 WITH A- LINE CONNECTING AND RIGHT SUBCLAVIAN RUNNING WITH D5W + 40 MEQ KCL @ 120 ML/HR INTACT AND PATENT. F/C DRAINED WITH CLEAR COLOR URINE. OFF FROM BED. KEPT PT CLEAN AND COMFORTABLE IN BED. CALL LIGHT KEPT WITHN EASY REACH. TURNED AND REPOSITIONED Q2H OFFLOAD EXT WITH PILLOWS. WILL CONTINUE TO MONITOR.
--- NOTE | 2019-03-12 20:46 | NUR ---
RN NOTES CALLED AND INFORMED DR. FINN REGARDING PATIENT IVF OF D5W+40 ME2 @ 120 ML/HR AND POTASSIUM THIS MORNING WENT UP TO 4.4. PER MD TO CHANGE RATE TO 75 ML/HR NOTED AND CARRIED OUT ORDERS.
--- NOTE | 2019-03-12 21:00 | NUR ---
RN NOTES LEVOPHED STOP A-LINE BP READING WAS 129/59 WILL CONTINUE TO MONITOR.
[2019-03-12] MEDS: MEROPENEM 1 G in IV NS 0.9% 100 ML IV SCH (21:07)
[2019-03-12] MEDS: HYDROGEL DRESSING 90 GM TUBE TP SCH (21:30)
[2019-03-12] MEDS: CLOTRIMAZOLE 1% 15 GM TUBE TP SCH (21:30)
[2019-03-13] VITALS (69 sets, daily range): BP systolic 94–145; BP diastolic 48–103
[2019-03-13] MEDS: Potassium Chloride 40 MEQ in IV D5W 1,000 ML IV PRN (00:24)
[2019-03-13] MEDS: FLUDROCORTISONE 0.1 MG TABLET NG SCH ×4 (00:26→17:26)
[2019-03-13 04:59] LABS: POTASSIUM 4.7 mmol/L (3.5-5.1)
[2019-03-13 05:00] LABS: CALCIUM, SERUM 6.9 mg/dL (8.5-10.1); CREATININE 0.8 mg/dL (0.6-1.3)
[2019-03-13] MEDS: MEROPENEM 1 G in IV NS 0.9% 100 ML IV SCH ×3 (05:35→21:31)
--- NOTE | 2019-03-13 07:00 | NUR ---
RN NOTES RECEIVED PT ON BED, A/OX2, ON TELE SR , HR IN 90'S , ON 2L O2 N/C , O2 SAT 100%, NO SOB NOTED, R UPPER CHEST HD CATH SITE CLEAN ,DRY AND INTACT, D5W + 40 MEQ KCL @ 75 ML/HR RUNNING VIA R SUBCLAVIAN IV SITE, INTACT, CYR DRAINING TO GRAVITY, KEPT PT CLEAN AND COMFORTABLE IN BED. CALL LIGHT KEPT WITHIN EASY REACH.BED LOCKED AND IN LOWEST POSITION, CONTINUE TURNING AND REPOSITIONING Q2H, OFFLOAD EXT WITH PILLOWS. CONTINUE TO MONITOR CLOSELY.
--- NOTE | 2019-03-13 07:34 | NUR ---
RN NOTES PT REMAINED STABLE. SATURATION REMAINED 100% NSR THROUGHOUT THE SHIFT. OFF FROM PRESSORS (LEVOPHED) SINCE 10PM. A- LINE AND CVP CONTINUE. AFEBRILE. CONTINUE WITH IV ATB TOLERATED WELL. KEPT PT CLEAN AND COMFORTABLE IN BED. IV SITE INTACT AND PATENT. ALL NEEDS ATTENDED. ENDORSED CONTINUITY OF CARE TO AM NURSE.
[2019-03-13] MEDS: HYDROCORTISONE SOD SUCCINATE 100 MG/2 ML VIAL IV SCH ×3 (08:12→16:44)
[2019-03-13] MEDS: INSULIN REGULAR, HUMAN 100 UNIT/ML 3 ML VIAL SQ PRN ×2 (08:14→17:26)
[2019-03-13] MEDS: BLOOD SUGAR DIAGNOSTIC 1 EACH STRIP IN SCH ×4 (08:15→21:54)
[2019-03-13] MEDS: Z GUARD REMEDY 2 OZ OINT TP PRN (08:15)
[2019-03-13] MEDS: CLOTRIMAZOLE 1% 15 GM TUBE TP SCH ×2 (09:28→16:45)
[2019-03-13] MEDS: HYDROGEL DRESSING 90 GM TUBE TP SCH ×2 (09:28→21:33)
--- NOTE | 2019-03-13 09:41 | NUR ---
WOUND CARE CONSULT WOUND CARE RECEIVED CONSULT FOR OPEN WOUND ON SACRAL. WOUND CARE WILL DEFER CONSULT AND ALL TREATMENT PLANS TO PLASTIC SURGICAL TEAM INCLUDING DPM DR MCNAIR WHO ARE CURRENTLY FOLLOWING THIS PATIENT. PATIENT WITH BECKY AT 11, ALL PRESSURE ULCER PREVENTION MEASURES ARE NOTED TO BE IN PLACE AT THIS TIME. WILL SEE PRN.
--- NOTE | 2019-03-13 10:00 | NUR ---
RN NOTES US GUIDED THORACENTESIS DONE BY RADIOLOGIST AT THE BEDSIDE, 240 CC PLEURAL FLUID SENT TO LAB PER MD ORDER.
--- NOTE | 2019-03-13 10:15 | NUR ---
RN NOTES DRESSING TO L UPPER BACK CHEST, CLEAN ,DRY AND INTACT , CONTINUE TO MONITOR
[2019-03-13] MEDS ORDERED: LIDOCAINE 1%-EPI 1:100,000 20 ML VIAL TP ONE (11:00)
--- NOTE | 2019-03-13 13:00 | NUR ---
RN NOTES R ARM LYNDA AND CVP LINE D/SYLVIE PER MD ORDER . CONTINUE TO MONITOR .
[2019-03-13] MEDS: IV D5W 1,000 ML IV PRN (13:02)
[2019-03-13] MEDS: LEVOFLOXACIN 750 MG /D5W 150ML 750 MG in PREMIX 1 EA IV SCH (13:03)
--- NOTE | 2019-03-13 14:00 | NUR ---
RN NOTES TELEPHONE CONSENT FOR SACRAL DEBRIDEMENT OBTAINED FROM PT'S DAUGHTER.
[2019-03-13] MEDS: RIVAROXABAN 15 MG TABLET PO SCH (16:44)
--- NOTE | 2019-03-13 18:32 | NUR ---
RN NOTES TWO LOOSE STOOL NOTED ON THIS SHIFT, VSS SABLE, ON 2L O2 N/C , NO SOB NOTED, SUPPORTIVE FAMILY AT THE BEDSIDE, WILL ENDOSE TO BACTERIOLOGIST SOIL NURSE FOR CONTINUITY OF CARE .
--- NOTE | 2019-03-13 20:10 | NUR ---
RN NOTES RECEIVED PT AWAKE ALERT ORIENTED X 1-2, MORE ALERT THAN YESTERDAY. ABLE TO VERBALIZED FEELINGS AND NEEDS. SATURATION 100% IN ROOM AIR. AFEBRILE. NO ACUTE RESPIRATORY DISTRESS. NSR ON TELE MONITOR. DENIES PAIN . TELE MONITOR REVEALS NSR. IV SITE ON RIGHT SUBCLAVIAN RUNNIGN WTIH IVF D5W + 40 MEQ @ 75 ML.HR INTACT AND PATENT. S/P CVP AND A-LINE REMOVED IN AM SHIFT. F/C DRAINED WITH CLEAR COLOR URINE OFF FROM THE FLOOR. TURNED AND REPOSITIONED PT COMFORTABLE. KEPT PT CLEAN AND DRY. PLACED BED IN LOWEST POSSIBLE POSITIONED FOR SAFETY. WILL CONT TO MONITOR.
--- NOTE | 2019-03-13 22:30 | NUR ---
RN NOTES BS CHECKED =72 MG/DL NO S/S OF HYPOGLYCEMIA. PT REMAINED IN BASELINE MENTAL STATUS. OFFERED FOOD AND GAVE ORANGE JUICE A SUPPORT FROM LOW BS TOLERATED WELL WITHOUT ASPIRATION. WILL CLOSELY MONITOR.
[2019-03-14] VITALS (26 sets, daily range): BP systolic 99–146; BP diastolic 51–102
[2019-03-14] MEDS: FLUDROCORTISONE 0.1 MG TABLET NG SCH ×4 (00:38→17:03)
[2019-03-14 04:58] LABS: BASOPHILS % (AUTO) 0.2 % (0.0-2.0); HEMATOCRIT 24 % (33-45); HEMOGLOBIN 7.5 g/dL (11.5-14.8); LYMPHOCYTES # (AUTO) 1.1 /CMM (0.8-4.8); LYMPHOCYTES % (AUTO) 8.6 % (20.0-44.0); MEAN CORPUSCULAR HGB CONC 31 g/dl (31.0-36.0); MEAN CORPUSCULAR VOLUME 102 fL (82-100); MONOCYTES # (AUTO) 0.3 /CMM (0.1-1.30); MONOCYTES % (AUTO) 2.6 % (2.0-12.0); NEUTROPHILS # (AUTO) 10.9 /CMM (1.8-8.9); NEUTROPHILS % (AUTO) 88.6 % (43.0-81.0); PLATELET COUNT (AUTO) 93 /CMM (150-450); RED BLOOD CELL COUNT(AUTO) 2.37 MIL/uL (4.0-5.2); WHITE BLOOD COUNT (AUTO) 12.3 K/uL (4.3-11.0)
[2019-03-14 05:22] LABS: CREATININE 0.6 mg/dL (0.6-1.3); POTASSIUM 3.7 mmol/L (3.5-5.1)
[2019-03-14] MEDS: MEROPENEM 1 G in IV NS 0.9% 100 ML IV SCH ×2 (05:39→12:56)
[2019-03-14] MEDS: IV D5W 1,000 ML IV PRN ×2 (05:49→22:18)
[2019-03-14 06:38] LABS: BAND % (MANUAL) 5 % (0.0-5.0); LYMPHOCYTES % (MANUAL) 4 % (16-48); METAMYELOCYTES % 1 % (0-0); MONOCYTES % (MANUAL) 4 % (0-11.0); NEUTROPHILS % (MANUAL) 86 (42-76)
--- NOTE | 2019-03-14 07:00 | NUR ---
RN NOTES PATIENT REMAINED IN STABLE CONDITION. BREATHING EVEN AND UNLABORED IN ROOM AIR ON AND OFF FROM O2 21-2 LPM VIA NC. SATURATION 100%. AFEBRILE. VSS SR ON TELE MONITOR. PT REMAINED IN BASELINE MENTAL STATUS AOX1-2. DENIES PAIN. TOLERATED PUREE DIET WITH NTL NO ASPIRATION PRESENT. IV SITE ON RIGHT SUBCLAVIAN TLC INTACT AND PATENT RUNNING WITH IVF OF DW @ 75 ML.HR . CENTRAL LINE DRESSING CHANGED. F/C DRAINED WITH YELLOW COLOR URINE WITH ADEQUATE OUTPUT. NO SIGNIFICANT YOSSI THROUGHOUT THE SHIFT. KEPT PT CLEAN AND COMFORTABLE IN BED. WILL ENDORSED CONTINUITY OF CARE TO AM NURSE.
--- NOTE | 2019-03-14 07:30 | NUR ---
ICU NOTES BS 133 MG/DL HELD INSULIN D/T PATIENT POOR APPETITE
[2019-03-14] MEDS: BLOOD SUGAR DIAGNOSTIC 1 EACH STRIP IN SCH ×4 (07:32→22:23)
[2019-03-14] MEDS: HYDROGEL DRESSING 90 GM TUBE TP SCH ×2 (08:44→17:04)
[2019-03-14] MEDS: CLOTRIMAZOLE 1% 15 GM TUBE TP SCH ×2 (08:44→17:03)
[2019-03-14] MEDS: HYDROCORTISONE SOD SUCCINATE 100 MG/2 ML VIAL IV SCH ×3 (08:44→17:03)
[2019-03-14] MEDS: RIVAROXABAN 15 MG TABLET PO SCH ×2 (08:45→17:04)
[2019-03-14] MEDS: INSULIN REGULAR, HUMAN 100 UNIT/ML 3 ML VIAL SQ PRN ×3 (08:45→17:16)
[2019-03-14] MEDS: LEVOFLOXACIN 750 MG /D5W 150ML 750 MG in PREMIX 1 EA IV SCH (14:01)
[2019-03-14] MEDS: CEFTRIAXONE 2 G in IV D5W 100 ML IV SCH (16:16)
[2019-03-14] MEDS ORDERED: METRONIDAZOLE 500MG/ NS 100ML 500 MG in PREMIX 1 EA IV SCH (17:00)
--- NOTE | 2019-03-14 17:30 | NUR ---
ENDORSED REPORT TO REUBEN LAWRENCE
--- NOTE | 2019-03-14 18:00 | NUR ---
television service engineer note received patent frm cu , alert ,oriented with confusion, on tele moniotr sr , with cadet cath to gravity , rt subclavian central line in place , on ivf as ordered, bed in lowest and locked position ,plan of care discussed with patient , will cont to monitor closely ,Flagyl iv still not acaliablr spoke with alethealy pharmacist ,stated that will bring soon , will f\u
[2019-03-14] MEDS: METRONIDAZOLE 500MG/ NS 100ML 500 MG in PREMIX 1 EA IV SCH (22:24)
[2019-03-15] VITALS: BP 144/56
[2019-03-15] MEDS: FLUDROCORTISONE 0.1 MG TABLET NG SCH ×5 (00:14→23:54)
[2019-03-15] MEDS: METRONIDAZOLE 500MG/ NS 100ML 500 MG in PREMIX 1 EA IV SCH ×3 (03:53→20:09)
[2019-03-15] MEDS: CEFTRIAXONE 2 G in IV D5W 100 ML IV SCH ×2 (03:53→15:50)
[2019-03-15 04:00] VITALS: BP 132/59
[2019-03-15] MEDS: INSULIN REGULAR, HUMAN 100 UNIT/ML 3 ML VIAL SQ PRN ×3 (06:22→22:22)
[2019-03-15] MEDS: BLOOD SUGAR DIAGNOSTIC 1 EACH STRIP IN SCH ×4 (06:23→22:12)
[2019-03-15 07:10] LABS: BILIRUBIN,TOTAL 0.2 mg/dL (0.2-1.0); CALCIUM, SERUM 7.3 mg/dL (8.5-10.1); CREATININE 0.6 mg/dL (0.6-1.3); TOTAL PROTEIN, SERUM 4.6 g/dL (6.4-8.2)
[2019-03-15 07:39] LABS: ALBUMIN 0.9 g/dL (3.4-5.0); POTASSIUM 2.7 mmol/L (3.5-5.1)
[2019-03-15 08:00] VITALS: BP 122/70
[2019-03-15] MEDS ORDERED: POTASSIUM CHLORIDE 20 MEQ TAB.PRT.SR PO ONE (09:00)
[2019-03-15] MEDS: POTASSIUM CL. PREMIX PERIPHER. 50 ML IV SCH ×4 (09:06→12:21)
[2019-03-15] MEDS: HYDROCORTISONE SOD SUCCINATE 100 MG/2 ML VIAL IV SCH ×3 (09:14→16:15)
[2019-03-15] MEDS: RIVAROXABAN 15 MG TABLET PO SCH ×2 (09:17→16:58)
[2019-03-15] MEDS: HYDROGEL DRESSING 90 GM TUBE TP SCH ×2 (09:18→20:43)
[2019-03-15] MEDS: CLOTRIMAZOLE 1% 15 GM TUBE TP SCH ×2 (09:20→16:42)
[2019-03-15] MEDS ORDERED: Potassium Chloride 40 MEQ in IV D5W 1,000 ML IV PRN (11:22)
[2019-03-15 12:00] VITALS: BP 130/90
--- NOTE | 2019-03-15 14:29 | NUR ---
DR PISANO WAS NOTIFIED HARRIET WHEN K /ALBUMIN RESULTS WERE IN. GAVE ORDERS AND CARRIED OUT. REPOSITIONED PATIENT 2 HOURLY AND KEPT PATIENT COMFORTABLE IN BED.
[2019-03-15 16:00] VITALS: BP 119/83
[2019-03-15 18:10] VITALS: BP 119/83
--- NOTE | 2019-03-15 19:48 | NUR ---
HARD CANDY SPINNER NOTES RECEIVED PATIENT AWAKE IN BED, ALERT ORIENTED X2, ALL SAFETY MEASURES IN PLACE, ASPIRATION PRECAUTION EMPHASIZE, BED IN LOW LOCKED POSITION, BSX2, CENTRAL LINE ON HER RIGHT SUBCLAVIAN DRY PATENT AND INTACT, IV FLUIDS INFUSING WELL, ALL NEEDS ATTENDED, NO SIGNS OF ACUTE RESPIRATORY OR CARDIAC DISTRESS NOTED AT THIS TIME TELE MONITOR READS SINUS 70s. WILL CONTINUE TO MONITOR ACCORDINGLY.
[2019-03-16] VITALS: BP 119/83
[2019-03-16 04:00] VITALS: BP 122/83
[2019-03-16] MEDS: METRONIDAZOLE 500MG/ NS 100ML 500 MG in PREMIX 1 EA IV SCH ×2 (04:20→13:01)
[2019-03-16] MEDS: CEFTRIAXONE 2 G in IV D5W 100 ML IV SCH ×2 (05:07→17:09)
[2019-03-16] MEDS: FLUDROCORTISONE 0.1 MG TABLET NG SCH ×3 (06:41→17:10)
--- NOTE | 2019-03-16 07:15 | NUR ---
VOCATIONAL REHAB CONSULTANT NOTES PATIENT AWAKE IN BED, ALERT ORIENTED X2, ALL SAFETY MEASURES IN PLACE, ASPIRATION PRECAUTION EMPHASIZE, BED IN LOW LOCKED POSITION, BSX2, CENTRAL LINE ON HER RIGHT SUBCLAVIAN DRY PATENT AND INTACT, IV FLUIDS INFUSING WELL, ALL NEEDS ATTENDED, NO SIGNS OF ACUTE RESPIRATORY OR CARDIAC DISTRESS NOTED AT THIS TIME TELE MONITOR READS SINUS 70s. ABLE TO REST AND SLEEP AT INTERVALS, WILL ENDORSE TO AM NURSE FOR CONTINUITY OF CARE.
[2019-03-16] MEDS: BLOOD SUGAR DIAGNOSTIC 1 EACH STRIP IN SCH ×3 (07:34→18:12)
[2019-03-16 08:00] VITALS: BP 126/82
--- NOTE | 2019-03-16 08:00 | NUR ---
Recived patient in bed sleeping breathing room air no acute respiratory distress noted , pt ic c/o generalized weakness and has lower extremities edema , rt subclavian with 3 lumen central line , infusing NS at 75cc/hr , pt has cadet to gravity with clear yellow urine , pt is afebrile , pt reposition for comfort SR x2 up
[2019-03-16] MEDS: HYDROCORTISONE SOD SUCCINATE 100 MG/2 ML VIAL IV SCH ×3 (09:02→17:09)
[2019-03-16] MEDS: RIVAROXABAN 15 MG TABLET PO SCH ×2 (09:04→17:34)
[2019-03-16] MEDS: HYDROGEL DRESSING 90 GM TUBE TP SCH (09:11)
[2019-03-16] MEDS: CLOTRIMAZOLE 1% 15 GM TUBE TP SCH ×2 (09:12→17:10)
[2019-03-16] MEDS: INSULIN REGULAR, HUMAN 100 UNIT/ML 3 ML VIAL SQ PRN ×2 (13:01→18:12)
[2019-03-16] MEDS ORDERED: FLUD0.1T3 NG (14:42)
[2019-03-16] MEDS ORDERED: CLOT15CR35 TP (14:42)
[2019-03-16] MEDS ORDERED: Rivaroxaban PO (14:42)
[2019-03-16 16:00] VITALS: BP 109/67
[2019-03-16 17:37] LABS: CALCIUM, SERUM 7.1 mg/dL (8.5-10.1); CREATININE 0.6 mg/dL (0.6-1.3); POTASSIUM 3.2 mmol/L (3.5-5.1)
--- NOTE | 2019-03-16 18:55 | NUR ---
1855 patient remain stable no acute distress , report called to SNF to nurse Saxena , pt is due to be transfered , family also informed of the discharge
--- NOTE | 2019-03-16 20:00 | NUR ---
MS1 RN NOTES RECEIVED ON BED A/O X1-2,AWAITING TO BE STOCK SHAPER BY AMBULANCE FOR DISCHARGE TO [facility].VITAL SIGNS BP 135/72,PULSE-82,RR-21,ORAL TEMP-98,O2 SAT 98% ON ROOM AIR.SKIN EXCORIATION ON LEFT BUTTOCKS CLEANSE WITH SOAP AND WATER AND APPLIED REMEDY AND MEPILEX.CENTRAL LINE REMOVED AND APPLIED PRESSURE DRESSING.DISCHARGE WITH CYR CATH IN PLACE DRAINING YELLOWISH OUTPUT.IN NO ACUTE DISTRESS.
--- NOTE | 2019-03-16 20:20 | NUR ---
MS1 RN NOTES LEFT THE UNIT (PREETHI ) THIS TIME VIA AMBULANCE IN STABLE CONDITION
== END 2019-03-16 20:30 | DRG 720 ==
LOC: ER 11:30 → ICU 12:08 → TELE1 03-14 17:55 → MEDSG1 03-16 11:35
PROVIDERS: ADMIT Hospitalist; ATTEND Nurse Practitioner Acute Care
PROC: B548ZZA Ultrasonography of Superior Vena Cava, Guidance (ICD-10-PCS; principal; 2019-03-09)
PROC: 5A1935Z Respiratory Ventilation, Less than 24 Consecutive Hours (ICD-10-PCS; principal; 2019-03-09)
PROC: 02HV33Z Insertion of Infusion Device into Superior Vena Cava, Percutaneous Approach (ICD-10-PCS; principal; 2019-03-09)
PROC: 0BH18EZ Insertion of Endotracheal Airway into Trachea, Via Natural or Artificial Opening Endoscopic (ICD-10-PCS; principal; 2019-03-09)
PROC: 30233N1 Transfusion of Nonautologous Red Blood Cells into Peripheral Vein, Percutaneous Approach (ICD-10-PCS; 2019-03-11)
PROC: 0W9B3ZZ Drainage of Left Pleural Cavity, Percutaneous Approach (ICD-10-PCS; 2019-03-13)
PROC: 0JB70ZZ Excision of Back Subcutaneous Tissue and Fascia, Open Approach (ICD-10-PCS; 2019-03-13)
DX: A41.9 Sepsis, unspecified organism (principal); J96.01 Acute respiratory failure with hypoxia; J69.0 Pneumonitis due to inhalation of food and vomit; R65.21 Severe sepsis with septic shock; E43 Unspecified severe protein-calorie malnutrition; J85.1 Abscess of lung with pneumonia; J90 Pleural effusion, not elsewhere classified; I96 Gangrene, not elsewhere classified; E87.2 Acidosis; L89.153 Pressure ulcer of sacral region, stage 3; D69.6 Thrombocytopenia, unspecified; E83.42 Hypomagnesemia; E86.0 Dehydration; I48.91 Unspecified atrial fibrillation; K21.9 Gastro-esophageal reflux disease without esophagitis; N39.0 Urinary tract infection, site not specified; E78.5 Hyperlipidemia, unspecified; E87.0 Hyperosmolality and hypernatremia; G40.909 Epilepsy, unspecified, not intractable, without status epilepticus; D53.9 Nutritional anemia, unspecified; Z86.718 Personal history of other venous thrombosis and embolism; E87.6 Hypokalemia; Z68.22 Body mass index [BMI] 22.0-22.9, adult; N17.9 Acute kidney failure, unspecified; R91.8 Other nonspecific abnormal finding of lung field; L98.8 Other specified disorders of the skin and subcutaneous tissue; L30.4 Erythema intertrigo; I82.432 Acute embolism and thrombosis of left popliteal vein; L85.3 Xerosis cutis; L89.610 Pressure ulcer of right heel, unstageable; D50.9 Iron deficiency anemia, unspecified; Z79.82 Long term (current) use of aspirin; Z79.4 Long term (current) use of insulin; Z79.899 Other long term (current) drug therapy; Z79.01 Long term (current) use of anticoagulants; Z66 Do not resuscitate; F32.9 Major depressive disorder, single episode, unspecified; F03.90 Unspecified dementia, unspecified severity, without behavioral disturbance, psychotic disturbance, mood disturbance, and anxiety; E11.52 Type 2 diabetes mellitus with diabetic peripheral angiopathy with gangrene; E11.65 Type 2 diabetes mellitus with hyperglycemia; D68.9 Coagulation defect, unspecified; I10 Essential (primary) hypertension; J98.4 Other disorders of lung; J44.9 Chronic obstructive pulmonary disease, unspecified; K80.20 Calculus of gallbladder without cholecystitis without obstruction; K52.9 Noninfective gastroenteritis and colitis, unspecified; B96.89 Other specified bacterial agents as the cause of diseases classified elsewhere
CPT/HCPCS: 31720; 36415; 36600; 70450-TC; 71045-TC; 71260-TC; 76942-TC; 80048-TC; 80053-TC; 80061-TC; 80076-TC; 80202-TC; 81000-TC; 82272-TC; 82533; 82728-TC; 82803-TC; 82962-TC; 83540-TC; 83605-TC; 83615-TC; 83735-TC; 83880; 84100-TC; 84439-TC; 84443-TC; 84484-TC; 85025-TC; 85027-TC; 85730-TC; 86480; 86850-TC; 86921-TC; 87040-TC; 87070-TC; 87075-TC; 87081-TC; 87086-TC; 87102-TC; 87186-TC; 87806; 87899; 89051-TC; 92526; 92611-TC; 93307-TC; 93930-TC; 93970-TC; 94002-TC; 94003-TC; 94799-TC; 99082-TC; A4216; A6248; A6402; A6403; G0378; J0696; J1265; J1650; J1720; J1815; J1956; J2060; J2185; J2370; J2543; J3370; J3475; J3480; J3490; J7030; J7040; J7050; J7060; J7070; P9016-BL; P9045; P9047; Q9967